=== PATIENT | male | born 1965 | race Caucasian/White ===

== ENCOUNTER 2023-05-11 12:25 | Outpatient (CLI) | payer OTHER, SELFPAY ==
--- NOTE | 2023-05-11 13:00 | CRLHL7_ITS ---
For Patients: As a result of the Cures Act, medical imaging exams and procedure reports are released immediately into your electronic medical record. You may view this report before your referring provider. If you have questions, please contact your health care provider. INDICATION: Cervical spine arthritis TECHNIQUE: Cervical spine radiograph 4 views COMPARISON: None FINDINGS: Bone: No acute fractures or aggressive bone lesions are identified. Alignment is normal. Disc: Moderate degenerative disc narrowing is present at C3-4. Anterior spinal fusion with metallic plate is present from C5-C7. Mild bilateral facet osteoarthritis is present in the mid and inferior cervical spine. Soft tissue: Unremarkable. No radiopaque foreign bodies are seen. IMPRESSION: 1. No acute osseous injuries or abnormalities are noted. Dictated by Manas Ball MD @ 05/12/2023 1:16:26 PM Dictated by: Manas Ball MD @ 05/12/2023 13:16:29 (Electronically Signed)
== END 2023-05-11 12:26 | disposition home or self-care (01) ==
LOC: RAD 12:28
PROVIDERS: PCP Internal Medicine Cardiovascular Disease; Visit Provider Chiropractor
DX: M47.892 Other spondylosis, cervical region (principal)
CPT/HCPCS: 72040